=== PATIENT | male | born 1940 | race Caucasian/White ===

== ENCOUNTER → 2016-09-12 | Outpatient (CLI) | payer MEDICARE, OTHER ==
[~2016-09-12] MED LIST: ADULT LOW DOSE81 MG PO; ALBUTEROL2.5 MG/31 INH; FLOMAX0.4 MG PO; HUMIBID LA (MU600 MG PO; K-TAB OR KLOR-10 MEQ PO; LASIX20 M1 PO; LISINOPRIL40 MG PO; MILK OF MA400 MG/5 M PO; NORCO 5-325 MG1 TAB PO; OXYGEN M-15 INH; OXYGEN NOSE; PROAIR RESPICL90 MCG INH; PROAMATINE5 MG PO; PROVENTIL2.5 MG/0.5 INH; SPIRIVA18 MCG INH; SYMBICORT 16010.2 GM INH; TYLENOL325 MG PO; VITAMIN D2000 UNI1 PO; ZANTAC (NON-FO150 MG PO; ZOCOR40 MG PO; ZOCOR80 MG PO
== END | disposition disaster alternative care site (69) ==
LOC: GKIC 11:10
DX: C34.2 Malignant neoplasm of middle lobe, bronchus or lung (principal); J98.4 Other disorders of lung; R91.8 Other nonspecific abnormal finding of lung field
CPT/HCPCS: A9552

== ENCOUNTER → 2017-02-25 | Outpatient (CLI) | payer MEDICARE, OTHER ==
[2017-02-25 13:25] LABS: BASOPHIL % 0.5 %; EOSINOPHIL # 0.1 K/uL (0.0-0.5); EOSINOPHIL % 0.7 %; HEMATOCRIT 44.1 % (37.0-53.0); HEMOGLOBIN 14.9 g/dL (11.0-16.0); IMMATURE GRANULOCYTE % 0.5 %; LYMPHOCYTE # 2.2 K/uL (0.8-4.0); LYMPHOCYTE % 24.6 %; MCH 33.6 pg (27.0-34.0); MCHC 33.8 gm/dL (32.0-36.5); MCV 99.3 fl (83.0-98.0); MONOCYTE # 0.9 K/uL (0.0-1.0); MONOCYTE % 10.1 %; MPV 9.5 fl (9.4-12.4); NEUTROPHIL # (ANC) 5.6 K/uL (1.4-9.0); NEUTROPHIL % 63.6 %; NRBC % 0 /100WBC (0-0.00); PLATELET COUNT 250 K/uL (150-450); WBC 8.9 K/uL (4.0-11.0)
[2017-02-25 13:26] LABS: RBC 4.44 M/uL (3.50-5.50)
== END ==
LOC: GOPD 02-20
PROVIDERS: Specialist
DX: C34.90 Malignant neoplasm of unspecified part of unspecified bronchus or lung (principal); I25.10 Atherosclerotic heart disease of native coronary artery without angina pectoris; Z95.1 Presence of aortocoronary bypass graft; Z95.5 Presence of coronary angioplasty implant and graft
CPT/HCPCS: J2001; J2250; J3010

== ENCOUNTER → 2017-03-05 | Outpatient (CLI) | payer MEDICARE, OTHER | LOC: GKIC 10:57 | DX: C34.2 Malignant neoplasm of middle lobe, bronchus or lung (principal) | CPT/HCPCS: A9552 ==